=== PATIENT | male | born 1965 | race Caucasian/White ===

== ENCOUNTER 2022-07-15 04:26 | Day surgery (SDC) | payer OTHER ==
[2022-07-06 14:45] VITALS: BMI 30.8
[2022-07-15] MEDS ORDERED: BUPIVACAINE HCL/PF 0.5% (5MG/ML) 10 ML VIAL ONE (14:21)
[2022-07-15] MEDS ORDERED: LIDOCAINE HCL 1%, 10 MG/ML (20ML VIAL) ONE (14:21)
[2022-07-15] MEDS ORDERED: ceFAZolin SODIUM 1 GM VIAL IVPB ONE ×2 (15:18→15:41)
[2022-07-15] MEDS ORDERED: LIDOCAINE HCL 1%, 10 MG/ML (20ML VIAL) NR ONE ×3 (15:19→16:30)
[2022-07-15] MEDS ORDERED: BUPIVACAINE HCL/PF 0.5% (5MG/ML) 10 ML VIAL IJ ONE ×2 (15:19→15:35)
[2022-07-15] MEDS ORDERED: ACETAMINOPHEN INJECTION 100 ML IVPB ONE (15:20)
[2022-07-15] MEDS ORDERED: FENTANYL CITRATE/PF 50 MCG/ML VIAL ONE ×2 (15:22→15:33)
[2022-07-15] MEDS ORDERED: MIDAZOLAM HCL 2 MG/2 ML SINGLE DOSE VIAL ONE (15:22)
[2022-07-15] MEDS ORDERED: PROPOFOL 40 ML ONE (15:31)
[2022-07-15] MEDS ORDERED: PROPOFOL 20 ML ONE (15:32)
[2022-07-15 18:09] VITALS: RESP 18; TEMP 97.2
[2022-07-15 18:18] VITALS: BP 140/80; PULSE 70
== END 2022-07-15 18:15 | disposition home or self-care (01) ==
LOC: JASU-SURG 04:26
PROVIDERS: ATTEND Podiatrist Foot & Ankle Surgery
PROC: 0SGN04Z Fusion of Left Metatarsal-Phalangeal Joint with Internal Fixation Device, Open Approach (ICD-10-PCS; principal; 2022-07-15 14:30)
DX: M20.22 Hallux rigidus, left foot (principal)
CPT/HCPCS: 28750; C1713; 73610-TC-LT-FY; 73630-TC-LT; 76000-TC-FY; 88305-TC; 88311-TC